=== PATIENT | female | born 1935 | race Caucasian/White ===

== ENCOUNTER → 2017-01-02 | Outpatient (CLI) | payer BC ==
[~2017-01-02] MED LIST: ALBU18002 INH; ASPI81TA28 PO; BIOT1TAB2 PO; CETI10TA84 PO; CHOL1000 PO; DTRSR4 PO; ESTR0.3T PO; MONT1TAB3 PO; SIMV20TA2 PO; SULF800T23 PO; SYMIN160 INH
--- NOTE | 2017-01-02 11:00 | DIAGNOSTIC IMAGING REPORT ---
CHEST 2 VIEWS ROUTINE CLINICAL HISTORY: ASTHMA WITH ACUTE EXACERBATION dyspnea COMPARISON STUDY: 11/30/2015 FINDINGS: No acute process. Stable calcified granuloma peripheral aspect left midlung. Stable pleural thickening pulmonary apices. Stable pleural plaque left as well as right upper lung region. IMPRESSION: No acute process. Electronically signed by: Flako Mcelroy M.D. 01/02/2017 10:59 AM Dictated Date/Time: 01/02/2017 10:58 AM
== END | disposition home or self-care (01) ==
LOC: C.RADBC 10:36
PROVIDERS: ATTEND Nurse Practitioner Adult Health
DX: J45.901 Unspecified asthma with (acute) exacerbation (principal)

== ENCOUNTER 2017-01-18 10:58 | Emergency (ER) | payer BC ==
[~2017-01-18] VITALS: Ht 162.6 cm; Wt 76.8 kg
[2017-01-18 11:06] VITALS: Ht 162.6 cm; Wt 76.8 kg
[2017-01-18] MEDS ORDERED: ESTR0.3T PO (12:48)
[2017-01-18] MEDS ORDERED: SIMV20TA2 PO (12:48)
[2017-01-18 12:51] VITALS: O2SAT 95
[2017-01-18] MEDS ORDERED: ASPI81TA28 PO (12:54)
[2017-01-18] MEDS ORDERED: SYMIN160 INH (12:54)
[2017-01-18] MEDS ORDERED: MONT1TAB3 PO (12:54)
[2017-01-18] MEDS ORDERED: BIOT1TAB2 PO (12:54)
[2017-01-18] MEDS ORDERED: ALBU18002 INH (12:54)
[2017-01-18] MEDS ORDERED: CETI10TA84 PO (12:54)
[2017-01-18] MEDS ORDERED: DTRSR4 PO (12:54)
[2017-01-18] MEDS ORDERED: CHOL1000 PO (12:54)
[2017-01-18 13:00] VITALS: TEMP 36.9
[2017-01-18 13:03] LABS: BASO % 0.2 %; BASO ABS # 0.02 K/uL (0-0.2); COMPLETE YES; EOS % 1.7 %; HEMATOCRIT 42.2 % (37-47); IG% 0.2 %; LYMPH % 12.6 %; LYMPH ABS # 1.05 K/uL (1.2-3.4); MEAN CELL VOLUME 90.9 fL (80-100); MEAN CORPUSCULAR HEMOGLOBIN 30.2 pg (25-34); MEAN CORPUSCULAR HGB CONC 33.2 g/dl (32-36); MEAN PLATELET VOLUME 10.7 fL (7.4-10.4); NEUT % 70.3 %; PLATELET COUNT 171 K/uL (130-400); RED BLOOD COUNT 4.64 M/uL (4.2-5.4); WHITE BLOOD COUNT 8.32 K/uL (4.8-10.8)
--- NOTE | 2017-01-18 13:03 | EMERGENCY ROOM VISIT NOTE ---
History Report prepared by Gavi: Celestina Bose Under the Supervision of: Dr. Geraldo Schaffer M.D. First contact with patient: 11:33 Chief Complaint: ILLNESS Stated Complaint: WEAK, SOB, TIRED History of Present Illness The patient is a 81 year old female who presents to the Emergency Room with complaints of a worsening weakness that began 2 days ago. She started getting short of breath, weak, and diaphoretic with exertion 2 days ago. Her symptoms improve with rest. Earlier today while she was sitting at her computer, she developed chest/epigastric pain that lasted for about 10 minutes and then resolved. She thought that it was heartburn. The patient denies any personal cardiac history. She has had a negative stress test in the past, but cannot remember when it was. She denies abdominal pain. Source of History: patient Onset: 2 days ago Position: other (global) Quality: other (weakness) Timing: worsening Modifying Factors (Worsening): exertion Modifying Factors (Relieving): rest Associated Symptoms: + diaphoresis, + chest pain, + SOB, No abdominal pain Review of Systems See HPI for pertinent positives & negatives. A total of 10 systems reviewed and were otherwise negative. Past Medical & Surgical Medical Problems: (1) Asthma (2) Osteoporosis Family History Heart disease Social History Smoking Status: Former Smoker Smokeless Tobacco Use: No Alcohol Use: occasionally Occupation Status: retired Current/Historical Medications Scheduled Aspirin (Aspirin Ec), 81 MG PO DAILY Biotin (Biotin), Unknown Dose PO DAILY Budesonide/Formoterol Fumarate (Symbicort 160/4.5 Inhaler ), Unknown Dose INH BID Cetirizine (Zyrtec), 10 MG PO DAILY Cholecalciferol (Vitamin D3), Unknown Dose PO DAILY Estrogens, Conjugated (Premarin), 0.3 MG PO DAILY Montelukast Sodium (Singulair), 10 MG PO DAILY Simvastatin (Zocor), Unknown Dose PO DAILY Sulfa/Trimethoprim (Bactrim Ds 800MG/160MG), 1 TAB PO BID Tolterodine Tartrate (Detrol LA), Unknown Dose PO DAILY Scheduled PRN Albuterol Sulfate (Proair Respiclick), 2 PUFFS INH DAILY PRN for SOB/Wheezing Allergies Coded Allergies: No Known Allergies (Unverified , 01/18/17) Physical Exam Vital Signs Date Time Temp Pulse Resp B/P (MAP) Pulse Ox O2 Delivery O2 Flow Rate FiO2 01/18/17 14:46 74 18 165/95 96 01/18/17 14:04 73 18 165/95 100 Room Air 01/18/17 13:00 36.9 01/18/17 12:55 75 01/18/17 12:54 75 18 174/64 94 Room Air 01/18/17 12:51 95 Room Air 01/18/17 11:06 93 20 126/65 93 Room Air Physical Exam GENERAL: Patient is a healthy-appearing well-nourished 81 year old female. HEAD: Normocephalic atraumatic EYES: Ocular movements intact pupils equal and react to light OROPHARYNX mucous membranes are moist no exudates present no erythema or edema present NECK: Supple no nuchal rigidity CHEST: Good equal expansion LUNGS: Clear and equal to auscultation CARDIAC: Normal S1 and S2 ABDOMEN: Soft nontender no guarding BACK: No CVA tenderness EXTREMITIES: No pain upon palpation normal muscle strength in all groups no clubbing cyanosis or edema NEURO: Patient is following commands is answering questions appropriately. Alert and oriented x3 Cranial Nerves 2-12 grossly intact Medical Decision & Procedures ER Provider Diagnostic Interpretation: Radiology results as stated below per my review and radiologist interpretation: CHEST ONE VIEW PORTABLE CLINICAL HISTORY: Shortness of breath. Weakness. COMPARISON STUDY: Chest radiograph January 02, 2017. FINDINGS: Lung lungs are normal. There is no pneumothorax or pleural effusion. Cardiomediastinal silhouette is stable. There is no evidence of pulmonary edema. Multiple calcified bilateral pulmonary nodules are again noted. Several pleural nodules are noted. These are unchanged since CT of December 18, 2010 and are therefore benign. There is no consolidation to suggest pneumonia. IMPRESSION: No acute cardiopulmonary findings. No change in appearance the chest. Electronically signed by: George Quintanilla M.D. 01/18/2017 1:34 PM Dictated Date/Time: 01/18/2017 1:33 PM Laboratory Results 01/18/17 12:50 Red Blood Count 4.64, Mean Corpuscular Volume 90.9, Mean Corpuscular Hemoglobin 30.2, Mean Corpuscular Hemoglobin Concent 33.2, Mean Platelet Volume 10.7, Neutrophils (%) (Auto) 70.3, Lymphocytes (%) (Auto) 12.6, Monocytes (%) (Auto) 15.0, Eosinophils (%) (Auto) 1.7, Basophils (%) (Auto) 0.2, Neutrophils # (Auto ) 5.84, Lymphocytes # (Auto) 1.05, Monocytes # (Auto) 1.25, Eosinophils # (Auto ) 0.14, Basophils # (Auto) 0.02 01/18/17 12:50 Test 01/18/17 12:30 01/18/17 12:50 Urine Color DK YELLOW Urine Appearance CLOUDY (CLEAR) Urine pH 5.5 (4.5-7.5) Urine Specific Stow 1.019 (1.000-1.030) Urine Protein TRACE (NEG) Urine Glucose (UA) NEG (NEG) Urine Ketones NEG (NEG) Urine Occult Blood TRACE (NEG) Urine Nitrite POS (NEG) Urine Bilirubin NEG (NEG) Urine Urobilinogen NEG (NEG) Urine Leukocyte Esterase MODERATE (NEG) Urine WBC (Auto) >30 /hpf (0-5) Urine RBC (Auto) 0-4 /hpf (0-4) Urine Hyaline Casts (Auto) 10-30 /lpf (0-5) Urine Epithelial Cells (Auto) >30 /lpf (0-5) Urine Bacteria (Auto) 4+ (NEG) White Blood Count 8.32 K/uL (4.8-10.8) Red Blood Count 4.64 M/uL (4.2-5.4) Hemoglobin 14.0 g/dL (12.0-16.0) Hematocrit 42.2 % (37-47) Mean Corpuscular Volume 90.9 fL (80-100) Mean Corpuscular Hemoglobin 30.2 pg (25-34) Mean Corpuscular Hemoglobin Concent 33.2 g/dl (32-36) Platelet Count 171 K/uL (130-400) Mean Platelet Volume 10.7 fL (7.4-10.4) Neutrophils (%) (Auto) 70.3 % Lymphocytes (%) (Auto) 12.6 % Monocytes (%) (Auto) 15.0 % Eosinophils (%) (Auto) 1.7 % Basophils (%) (Auto) 0.2 % Neutrophils # (Auto) 5.84 K/uL (1.4-6.5) Lymphocytes # (Auto) 1.05 K/uL (1.2-3.4) Monocytes # (Auto) 1.25 K/uL (0.11-0.59) Eosinophils # (Auto) 0.14 K/uL (0-0.5) Basophils # (Auto) 0.02 K/uL (0-0.2) RDW Standard Deviation 41.8 fL (36.4-46.3) RDW Coefficient of Variation 12.6 % (11.5-14.5) Immature Granulocyte % (Auto) 0.2 % Immature Granulocyte # (Auto) 0.02 K/uL (0.00-0.02) Anion Gap 7.0 mmol/L (3-11) Est Creatinine Clear Calc Drug Dose 42.8 ml/min Estimated GFR () 60.3 Estimated GFR (Non- 52.1 BUN/Creatinine Ratio 20.4 (10-20) Calcium Level 9.2 mg/dl (8.5-10.1) Total Bilirubin 0.3 mg/dl (0.2-1) Aspartate Amino Transf (AST/SGOT) 26 U/L (15-37) Alanine Aminotransferase (ALT/SGPT) 36 U/L (12-78) Alkaline Phosphatase 58 U/L (45-117) Total Creatine Kinase 47 U/L (26-192) Creatine Kinase MB 1.0 ng/ml (0.5-3.6) Creatine Kinase MB Ratio 2.1 (0-3.0) Troponin I < 0.015 ng/ml (0-0.045) Pro-B-Type Natriuretic Peptide 176 pg/ml (0-1800) Total Protein 7.6 gm/dl (6.4-8.2) Albumin 3.3 gm/dl (3.4-5.0) Globulin 4.3 gm/dl (2.5-4.0) Albumin/Globulin Ratio 0.8 (0.9-2) Labs reviewed by ED physician. Medications Administered Medications (Trade) Dose Ordered Sig/Shauna Route Start Time Stop Time Status Last Admin Dose Admin Ceftriaxone Sodium (Rocephin Inj) 1 gm NOW STAT IV 01/18/17 13:42 01/18/17 13:43 DC 01/18/17 14:02 1 GM ECG Indication: chest pain Rate (beats per minute): 80 Rhythm: normal sinus Findings: T-wave inversion (Anterolateral), no ectopy Comparison ECG Date: 05/26/2005 Change: T-wave inversions are new. ED Course 1221: Past medical records reviewed. The patient was evaluated in room C1B. A complete history and physical examination was performed. 1342: Rocephin 1 gm IV 1344: I reassessed the patient at this time. She is feeling better and resting comfortably. I discussed the results and treatment plan with the patient. I answered all pertaining questions that she had. She expressed understanding and verbalized agreement. The patient will be discharged home. 1407: I spoke with the patient again at this time. I addressed her complaints and she is in agreement with the treatment plan. She will be discharged. Medical Decision Etiologies such as metabolic, infection, hypo/hyperglycemia, electrolyte abnormalities, cardiac sources, intracerebral event, toxicologic, neurologic, as well as others were entertained. Medication Reconciliation: I attest that I have personally reviewed the patient' s current medication list. Blood Pressure Screening: Patient was found to have an elevated blood pressure and was referred to their primary care doctor for recheck and further treatment. This is an 81-year-old female who presents emergency Department with a number of complaints including headache, chest pain, generalized weakness. She does have a normal CBC normal renal profile normal liver profile normal EKG normal CK -MB troponin. She does however have large amount of white blood cells in her urine and I do believe she has a urinary tract infection. Based on this finding the patient was given Rocephin. I believe she can be sent home with Bactrim to follow-up with her primary care physician pending urine culture results. Patient was in agreement with the treatment plan. Impression Primary Impression: UTI (urinary tract infection) Scribe Attestation The scribe's documentation has been prepared under my direction and personally reviewed by me in its entirety. I confirm that the note above accurately reflects all work, treatment, procedures, and medical decision making performed by me. Departure Information Dispostion Home / Self-Care Prescriptions Sulfa/Trimethoprim (Bactrim Ds 800MG/160MG) Tab 1 TAB PO BID for 10 Days, #20 TAB Prov: Geraldo Schaffer MD 01/18/17 Referrals Neo Cruz M.D. (PCP) Forms HOME CARE DOCUMENTATION FORM, IMPORTANT VISIT INFORMATION, WORK / SCHOOL INSTRUCTIONS Patient Instructions ED UTI Cystitis Female, [facility] Additional Instructions You were found to have an elevated blood pressure today (>120 sytolic or >90 diastolic). Per medicare guidelines, you need to follow up with this blood pressure screening with your Primary Care Physician (PCP). For a new PCP call [phone]. Culture results are usually available in approx 48 hours You have been examined and treated today on an emergency basis only. This is not a substitute for, or an effort to provide, complete comprehensive medical care. It is impossible to recognize and treat all injuries or illnesses in a single emergency department visit. It is therefore important that you follow up closely with Dr Cruz. Call as soon as possible for an appointment. Thank you for your time and consideration. I look forward to speaking with you again soon. Please don't hesitate to call us if you have any questions. Problem Qualifiers Primary Impression: UTI (urinary tract infection) Urinary tract infection type: acute cystitis Hematuria presence: with hematuria Qualified Codes: N30.01 - Acute cystitis with hematuria
[2017-01-18 13:21] LABS: ALT/SGPT 36 U/L (12-78); AST/SGOT 26 U/L (15-37); BLOOD UREA NITROGEN 20 mg/dl (7-18); BUN/CREATININE RATIO 20.4 (10-20); CALCIUM 9.2 mg/dl (8.5-10.1); CARBON DIOXIDE 29 mmol/L (21-32); CHLORIDE 101 mmol/L (98-107); GLUCOSE 98 mg/dl (70-99); POTASSIUM 4.3 mmol/L (3.5-5.1); SODIUM 137 mmol/L (136-145)
[2017-01-18 13:26] LABS: ALB/GLOB RATIO 0.8 (0.9-2); ALKALINE PHOSPHATASE 58 U/L (45-117); CKMB/CK RATIO 2.1 (0-3.0)
[2017-01-18 13:31] LABS: URINE APPEARANCE CLOUDY (CLEAR); URINE BILIRUBIN NEG (NEG); URINE COLOR DK YELLOW; URINE EPITHELIAL CELL AUTO >30 /lpf (0-5); URINE NITRITE POS (NEG); URINE PH 5.5 (4.5-7.5); URINE SPECIFIC GRAVITY 1.019 (1.000-1.030); UROBILINOGEN NEG (NEG)
[2017-01-18 13:32] LABS: MANUAL MICROSCOPIC REQUIRED? NO; REVIEW REQ? NO
--- NOTE | 2017-01-18 13:36 | DIAGNOSTIC IMAGING REPORT ---
CHEST ONE VIEW PORTABLE CLINICAL HISTORY: Shortness of breath. Weakness. COMPARISON STUDY: Chest radiograph January 02, 2017. FINDINGS: Lung lungs are normal. There is no pneumothorax or pleural effusion. Cardiomediastinal silhouette is stable. There is no evidence of pulmonary edema. Multiple calcified bilateral pulmonary nodules are again noted. Several pleural nodules are noted. These are unchanged since CT of December 18, 2010 and are therefore benign. There is no consolidation to suggest pneumonia. IMPRESSION: No acute cardiopulmonary findings. No change in appearance the chest. Electronically signed by: George Quintanilla M.D. 01/18/2017 1:34 PM Dictated Date/Time: 01/18/2017 1:33 PM
[2017-01-18] MEDS ORDERED: CEFTRIAXONE SOD INJ 1 GM ADDVIAL IV STA (13:42)
[2017-01-18] MEDS ORDERED: SULF800T23 PO (13:53)
[2017-01-18 14:46] VITALS: BP 165/95; PULSE 74; O2SAT 96
== END 2017-01-18 14:47 | disposition home or self-care (01) ==
LOC: C.EDB 11:00 → C.EDC 14:47
DX: N39.0 Urinary tract infection, site not specified (principal); R53.1 Weakness; R06.02 Shortness of breath; R61 Generalized hyperhidrosis; Z87.891 Personal history of nicotine dependence

== ENCOUNTER → 2017-03-11 | Outpatient (CLI) | payer BC ==
[~2017-03-11] MED LIST changes: -SULF800T23 PO
--- NOTE | 2017-03-11 13:24 | MAMMOGRAPHY REPORT ---
BILATERAL DIGITAL SCREENING MAMMOGRAM WITH CAD: 03/11/2017 CLINICAL HISTORY: Routine screening. Patient has no complaints. TECHNIQUE: Bilateral CC and MLO views were obtained. Current study was also evaluated with a Compute r Aided Detection (CAD) system. COMPARISON: Comparison is made to exams dated: 03/09/2016 mammogram, 03/05/2015 mammogram, 03/02/2014 m ammogram, 03/02/2014 ultrasound, 02/26/2014 mammogram, and 02/28/2013 mammogram - [facility]. BREAST COMPOSITION: There are scattered areas of fibroglandular density in both breasts. FINDINGS: There are stable benign coarse and rodlike calcifications in both breasts. No suspicious mass, architectural distortion or cluster of suspicious microcalcifications is seen. IMPRESSION: ACR BI-RADS CATEGORY 2: BENIGN There is no mammographic evidence of malignancy. A 1 year screening mammogram is recommended. The pa tient will receive written notification of the results. Approximately 10% of breast cancers are not detected with mammography. A negative mammographic report should not delay biopsy if a clinically suggestive mass is present. Nissa Ryan M.D. ay/:03/11/2017 10:15:55 Air Purifier Servicer: Jaylyn Guzman, [facility] letter sent: Normal 1/2 BI-RADS Code: ACR BI-RADS Category 2: Benign
== END | disposition home or self-care (01) ==
LOC: C.MAMM 09:42
PROVIDERS: ATTEND Obstetrics & Gynecology
DX: Z12.31 Encounter for screening mammogram for malignant neoplasm of breast (principal)

== ENCOUNTER → 2017-12-08 | Outpatient (CLI) | payer BC ==
--- NOTE | 2017-12-08 14:16 | DIAGNOSTIC IMAGING REPORT ---
Brain MRI WITHOUT CONTRAST HISTORY: Left-sided headache. TECHNIQUE: Multiplanar multisequence MRI of the brain was performed without the use of contrast. COMPARISON STUDY: None. FINDINGS: There is no mass, hematoma, midline shift, or acute infarct. Moderate mucosal thickening within the left sphenoid sinus. Mild mucosal thickening within the ethmoid air cells. The mastoid air cells are clear. The ventricles and sulci demonstrate mild age-related involutional changes. Scattered foci of T2 hyperintensity seen within the periventricular and subcortical white matter are nonspecific but suggestive of mild microvascular ischemic changes. The major vascular flow voids at the skull base are well-maintained. IMPRESSION: 1. No acute intracranial abnormality. Scattered foci of T2 hyperintensity seen within the periventricular and subcortical white matter are nonspecific but favor microvascular ischemic change. 2. Mild to moderate mucosal thickening within the paranasal sinuses. Electronically signed by: Eligio Kelley M.D. 12/08/2017 2:15 PM Dictated Date/Time: 12/08/2017 2:05 PM
== END | disposition home or self-care (01) ==
LOC: C.MRIBC 13:00
PROVIDERS: ATTEND Internal Medicine
DX: G31.84 Mild cognitive impairment of uncertain or unknown etiology (principal); R51 Headache

== ENCOUNTER → 2018-03-14 | Outpatient (CLI) | payer BC ==
--- NOTE | 2018-03-14 15:42 | MAMMOGRAPHY REPORT ---
BILATERAL DIGITAL SCREENING MAMMOGRAM TOMOSYNTHESIS WITH CAD: 03/14/2018 CLINICAL HISTORY: Routine screening. Patient has no complaints. TECHNIQUE: The study was acquired using full field digital technology and interpreted from soft copy. Breast tomosynthesis in addition to standard 2D mammography was performed. Current study was also ev aluated with a Computer Aided Detection (CAD) system. COMPARISON: Comparison is made to exams dated: 03/11/2017 mammogram, 03/09/2016 mammogram, 03/05/2015 m ammogram, 03/02/2014 ultrasound, 02/28/2013 mammogram, and 02/21/2013 mammogram - [facility] enter. BREAST COMPOSITION: There are scattered areas of fibroglandular density in both breasts. FINDINGS: There is a 5 mm focal asymmetry in the 12:00 versus retroareolar middle to posterior left b reast, for which additional spot compression tomosynthesis views and possible ultrasound are recommen ded. There are scattered rodlike and benign rim calcifications in both breasts. No other suspicious mass, architectural distortion or cluster of microcalcifications is seen. IMPRESSION: ACR BI-RADS CATEGORY 0: INCOMPLETE EVALUATION: NEED ADDITIONAL IMAGING EVALUATION The 5 mm focal asymmetry in the 12:00 versus retroareolar middle to posterior left breast needs addit ional evaluation. The patient will be called to schedule an appointment. Some breast cancers are not detected with mammography. A negative mammographic report should not dick y biopsy if a clinically suggestive mass is present. Nissa Ryan M.D. ay/:03/14/2018 14:52:59 Silk Screen Repairer: Jaylyn Guzman, [facility] letter sent: Addl Imaging 0 BI-RADS Code: ACR BI-RADS Category 0: Incomplete Evaluation: Need Additional Imaging Evaluation
== END | disposition home or self-care (01) ==
LOC: C.MAMM 09:57
PROVIDERS: ATTEND Internal Medicine
DX: Z12.31 Encounter for screening mammogram for malignant neoplasm of breast (principal); N64.89 Other specified disorders of breast

== ENCOUNTER → 2018-03-18 | Outpatient (CLI) | payer BC ==
--- NOTE | 2018-03-18 14:36 | MAMMOGRAPHY REPORT ---
UNILATERAL LEFT DIGITAL DIAGNOSTIC MAMMOGRAM TOMOSYNTHESIS AND TARGETED LEFT ULTRASOUND: 03/18/2018 CLINICAL HISTORY: Callback from screening mammogram for left breast asymmetry. TECHNIQUE: The study was acquired using full field digital technology and interpreted from soft copy. Breast tomosynthesis in addition to standard 2D mammography was performed. Spot compression left CC and MLO 2D and tomosynthesis images were obtained. COMPARISON: Comparison is made to exams dated: 03/14/2018 mammogram, 03/11/2017 mammogram, 03/09/2016 m ammogram, 03/05/2015 mammogram, 03/02/2014 mammogram, and 02/26/2014 mammogram - [facility] enter. BREAST COMPOSITION: There are scattered areas of fibroglandular density in left breast. FINDINGS: Spot compression views demonstrate a faint low-density oval circumscribed 6 mm mass within the left 1 2:00 breast, best seen on the tomosynthesis images. The finding appears stable on 2D views compared to prior exams including the cc views from the 2012 and 2010 exams. Targeted ultrasound was perform ed of the left 12:00 breast in the region of the mammographic mass. No suspicious mass or other susp icious sonographic abnormality is evident. No clear sonographic correlate for the mammographic mass is seen. IMPRESSION: ACR BI-RADS CATEGORY 2: BENIGN, ULTRASOUND ACR BI-RADS CATEGORY 2: BENIGN Circumscribed benign-appearing 6 mm mass within the left 12:00 breast appears stable mammographically dating back to at least the 2010 exam. No suspicious sonographic correlate is evident. Given the m orphology and long-term stability, the mass is considered benign. There is no mammographic or sonogr aphic evidence of malignancy. A 1 year screening mammogram is recommended.(03/19/2019) The patient h as been verbally notified of the results. Some breast cancers are not detected with mammography. A negative mammographic report should not dick y biopsy if a clinically suggestive mass is present. Cheyenne Rosales M.D. ah/:03/18/2018 09:06:42 Casting Operator: RT Lynn(R)(M), [facility]; Cheyenne Rosales MD, [facility] letter sent: Normal 1/2 OVERALL STUDY BIRADS: 2 Benign
== END | disposition home or self-care (01) ==
LOC: C.MAMM 08:40
PROVIDERS: ATTEND Internal Medicine
DX: N64.89 Other specified disorders of breast (principal)

== ENCOUNTER 2021-08-14 08:25 | Observation (INO) ==
--- NOTE | 2021-08-14 09:05 | Emergency Department Note ---
Impression & Plan Syncope, Nasal fracture, Aortic stenosis ED Provider Note CHIEF COMPLAINT: Fall, head injury, right hand pain HISTORY OF PRESENTING ILLNESS: This is an 86-year-old female who presents to the emergency department by private vehicle with her with complaint of fall and head injury and right hand injury that occurred last night. Patient states she does not remember how she fell and does note that there was some loss of consciousness. She states "when I came to, I asked my how did I get on the bathroom floor." Patient notes that she went to bed around 10 PM last night and she woke up on the bathroom floor around 1 AM. She assumes that she got up to use the bathroom but does not remember this. She notes that she hit the front of her forehead and face and has some bruising around her nose and eyes. She also notes bruising and swelling with some pain in the top of her right hand. She notes that she takes a baby aspirin, but denies taking any other blood thinners. She was previously on Plavix for some "mini strokes" but does not still take this. She complains of pain in the right hand that she rates 3/10. She also complains of a mild headache and mild neck pain. She denies any chest pain, chest tightness, shortness of breath, palpitations, or dizziness. She denies any numbness/tingling or weakness of her arms or legs, she denies vision changes or problems with her balance. She denies any history of heart rhythm problems and does not have a pacemaker or defibrillator. She does have a history of heart murmur. She denies any other injuries besides the face and right hand. She reports that her tetanus is up-to-date. REVIEW OF SYSTEMS: A complete 10 point review of systems was reviewed with the patient with pertinent positives and negatives as per history of present illness. All else were negative. PAST MEDICAL HISTORY: Hypertension, hyperlipidemia, CVA, asthma, aortic stenosis, osteoporosis, history of cataract surgery, hysterectomy, and sinus surgery SOCIAL HISTORY: Lives at home with her , she denies tobacco use ALLERGIES: Reviewed in chart with the patient PHYSICAL EXAM: CONSTITUTIONAL: Pleasant and cooperative. Nontoxic-appearing and in no acute distress. Well appearing and well nourished. HEENT: Normocephalic. There is a small hematoma to the left forehead and a small amount of ecchymosis noted along the inner corners of both eyes. Bruising and abrasion over the bridge of the nose, which is tender to palpation. Dried blood and blood clots noted in both nares, no septal hematoma or significant septal deviation. PERRLA, EOMI with no nystagmus. TMs normal, no hemotympanum bilaterally. Pharynx normal. NECK: Mild discomfort with moving the neck. Tenderness to palpation along the bilateral musculature of the neck. No midline tenderness of the cervical spine with palpation. RESPIRATORY: Clear to auscultation bilaterally with no wheezing, crackles, rhonchi or stridor. Equal expansion bilaterally. CARDIOVASCULAR: Regular rate and rhythm, 3/6 systolic murmur, no rubs or gallops. Normal peripheral perfusion. No edema. GASTROINTESTINAL: Soft, nontender, nondistended. No palpable masses or HSM. Bowel sounds present in all quadrants. MUSCULOSKELETAL: Moderate swelling and ecchymosis noted to the dorsal aspect of the right hand at the base of the second and third fingers overlying MCP joints. Full range of motion of all fingers and wrist without pain. Brisk capillary refill, 2+ radial pulse. Full range of motion of all other joints without discomfort. INTEGUMENTARY: No rash or other significant dermatologic conditions noted. NEUROLOGIC: Alert and oriented X 4 with normal affect. Cranial nerves II-XII grossly intact, no facial droop. No pronator drift. No focal neurologic deficits noted. Normal strength and sensation in all 4 extremities. Normal speech. Normal gait observed. ED COURSE AND MEDICAL DECISION MAKING: CC: Patient presenting with complaint of fall/syncope, head injury and right hand pain DIFFERENTIAL DIAGNOSIS: Includes, but not limited to mechanical fall, syncope, vasovagal episode, orthostatic hypotension, cardiac dysrhythmia, acute coronary syndrome, hand contusion, sprain/strain, fracture, intracranial hemorrhage, skull fracture, cervical spine injury, concussion, facial bone fracture, nasal bone fracture, among others. INTERPRETATION OF LABS: No leukocytosis, no anemia, normal platelets, no significant electrolyte abnormalities, mildly elevated BUN with a normal creatinine, normal liver enzymes. TSH within normal limits. Troponin is mildly elevated. UA pending at the time of admission. EKG: Shows normal sinus rhythm with a rate of 81 bpm, mild T wave inversions in the lateral leads, no ST elevation or depression, no ectopy, no significant change when compared to previous EKG from 01/18/2017 my interpretation. MEDICATION RECONCILIATION: I attest that I have personally reviewed the patient's current medication list. INITIAL VITAL SIGNS REVIEW: I reviewed the patient's initial vital signs and interpret them as follows: T: Afebrile; BP: Hypertensive; HR: Within normal limits; RR: Within normal limits; Pulse Ox: Within normal limits on room air. MDM SUMMARY: Patient was evaluated at bedside, history and physical exam performed. Patient is alert and oriented, in no acute distress, resting calmly in the stretcher. She is neurologically intact with no focal deficits. No midline tenderness of the cervical spine. She is noted to have forehead hematoma and some facial trauma with dried blood and blood clots in the bilateral nares and some bruising over the nasal bridge. There is bruising and swelling of the right hand. No other injuries noted on exam. Patient was offered something for pain, she declines. She was provided with an ice pack for her hand. Patient history is concerning for a syncopal episode. She does have a history of aortic stenosis and is noted to have a systolic murmur on exam. Cardiac monitoring: An order was placed for continuous cardiac monitoring. The monitor shows a rate of 84 bpm with normal sinus rhythm. EKG was reviewed and did not note any acute ischemic changes Orders were placed for labs including troponin and TSH, UA, x-ray of the right hand, CT imaging of the head, cervical spine, and facial bones to evaluate for trauma. Patient discussed with Dr. Rashid, who also evaluated the patient and agrees with my assessment, plan, and disposition. Labs and imaging reviewed, labs were notable for a mildly elevated troponin. X-ray of the hand was negative for any acute fracture. CT imaging of the head and cervical spine were negative for any acute findings, but there was note of a mildly displaced nasal bone fracture on facial CT. She does not have active epistaxis from the nose and bleeding is controlled. Spoke on the phone with Dr. Hebert, [facility] Hospitalist, who agrees to evaluate the patient for admission. Patient reassessed multiple times throughout ED stay, she has remained neurologically intact, hemodynamically stable and chest pain-free, and her pain remains well controlled. Patient was updated on all results and plan for admission, all questions were answered to the best my ability and the patient was agreeable to this plan. The patient was stable at time of admission. The chart was completed utilizing [employer] Speech voice recognition software. Grammatical errors, random word insertions, pronoun errors, and incomplete sentences are an occasional consequence of this system due to software limitations, ambient noise, and hardware issues. Any formal questions or concerns about the content, text, or information contained within the body of this dictation should be directly addressed to the nurse practitioner for clarification. Attending Attestation: Rebekah Rashid MD independently saw and evaluated this patient and agree with history and physical is otherwise documented by the physician life enrichment assistant. S ee their note for full details. Patient with contusion to right hand but no frx on xray. CT imaging with nasal fracture. Patient with contusion and tenderness on nasal bridge and dried blood in nares. Blood work given concern for syncope with + troponin. ?arrhythmia vs exacerbation of underlaying aortic stenosis. Discussed with patient and further monitoring and care here at the hospital. Past Med/Surg History Medical History (Updated 08/14/21 @ 17:28 by Dae Tafoya MD) Asthma with acute exacerbation Multiple pulmonary nodules Osteoporosis Sensorineural hearing loss Surgical History H/O Mohs micrographic surgery for skin cancer Hx of cataract surgery Hx of colonoscopy Hx of hysterectomy Hx of sinus surgery Family History Father Coronary heart disease Myocardial infarction Mother Diabetes Cardiac disorder Myocardial infarction Daughter Breast cancer Family/Other Hyperlipidemia Hypertension Denies family history of Ovarian cancer Prostate cancer Colorectal cancer Social History Smoking Status: Never smoker Age Started Using Tobacco: 14; Age Quit Using Tobacco: 43; packs per day: 0.5; Years Smoked: 29; Cigarettes Per Day: 10; Second Hand Exposure: No; Hx Alcohol Use: Yes (2 glasss of wine a day) Alcohol type: wine Alcohol Intake Frequency: 4 or More x per/Week Hx Substance Use: No Preferred Language: Kazakh Communication Ability: Effective Visual Impairment: Limited Hearing Ability: Normal Content Designer Required: No marital status: Current Living Situation: Spouse current occupational status: retired How many Children do You have: 2 Feels Safe at Home: Yes Childhood Exposure to Second-Hand Smoke: No caffeine: Yes Dental Care, Regularly: Yes Physical Activity Frequency: 3-4 Times per Week Seatbelt Use: always Sunscreen Use: Yes Allergies Allergies Allergy/AdvReac Type Severity Reaction Status Date / Time codeine Allergy Hives Verified 08/14/21 10:36 Dextromethorphan-guaiFENesin Allergy Mild Hives Uncoded 08/14/21 10:36 S Home Meds Home Medications Medication Instructions Recorded Confirmed cholecalciferol (vitamin D3) 50 5,000 unit PO DAILY cap 12/24/20 08/14/21 mcg (2,000 unit) capsule cetirizine 10 mg tablet (Zyrtec) 10 mg PO HS tab 03/24/21 08/14/21 mirabegron 25 mg tablet,extended 25 mg PO PM 08/14/21 08/14/21 release 24 hr (Myrbetriq) Previous Rx's Medication Instructions Recorded telmisartan 20 mg tablet 20 mg PO DAILY #90 tab 09/13/20 montelukast 10 mg tablet 10 mg PO QPM #90 tab 12/24/20 fenofibrate nanocrystallized 145 145 mg PO DAILY #90 tab 02/10/21 mg tablet simvastatin 40 mg tablet 40 mg PO HS #90 tab 02/10/21 clopidogrel 75 mg tablet (Plavix) 75 mg PO DAILY #30 tab 03/27/21 Results & Data (ED) Vital Signs Vital Signs - 24 hr 08/14/21 08:29 08/14/21 09:50 08/14/21 11:01 Temperature 36.4 C L Temperature Source Temporal Artery Scan Pulse Rate 92 H Pulse Rate [Apical] 68 77 Respiratory Rate 20 17 17 Respiratory Effort / Characteristics Non-Labored Spontaneous Respiratory Depth Normal Respiratory Pattern Regular Blood Pressure 158/80 H Blood Pressure [Left Arm] 159/62 H 206/86 H Blood Pressure Mean 106 Blood Pressure Mean [Left Arm] 94 126 Pulse Oximetry 97 97 96 Oxygen Delivery Method Room Air Room Air Room Air Sepsis Recent Fever Within 48 Hours No Sepsis New/Unexplained Change in Mental Status No Sepsis Action Taken by Nursing No Action Required Laboratory Data Result diagrams: 08/14/21 09:05 08/14/21 09:05 Lab Results 08/14/21 08/14/21 08/14/21 Range/Units 09:05 09:05 10:25 WBC 6.43 (4.8-10.8) K/uL RBC 4.39 (4.2-5.4) M/uL Hgb 13.1 (12.0-16.0) g/dL Hct 39.4 (37-47) % MCV 89.7 (80-100) fL MCH 29.8 (25-34) pg MCHC 33.2 (32-36) g/dL RDW Std Deviation 40.5 (36.4-46.3) fL RDW Coeff of Jai 12.5 (11.5-14.5) % Plt Count 209 (130-400) K/uL MPV 10.9 H (7.4-10.4) fL Immature Gran % (Auto) 0.3 % Neut % (Auto) 67.6 % Lymph % (Auto) 18.5 % [place] % (Auto) 8.6 % Eos % (Auto) 4.7 % Baso % (Auto) 0.3 % Neut # (Auto) 4.35 (1.4-6.5) K/uL Lymph # (Auto) 1.19 L (1.2-3.4) K/uL [place] # (Auto) 0.55 (0.11-0.59) K/uL Eos # (Auto) 0.30 (0-0.5) K/uL Baso # (Auto) 0.02 (0-0.2) K/uL Immature Gran # (Auto) 0.02 (0.00-0.02) K/uL Sodium 134 L (136-145) mmol/L Potassium 4.1 (3.5-5.1) mmol/L Chloride 103 (98-107) mmol/L Carbon Dioxide 28 (21-32) mmol/L Anion Gap 3.0 (3-11) BUN 22 H (7-18) mg/dl Creatinine 1.09 (0.6-1.2) mg/dl Est Cr Clr Drug Dosing 34.9 ml/min Est GFR ( Amer) 52.5 ml/min Est GFR (Non-Af Amer) 45.3 ml/min BUN/Creatinine Ratio 19.9 (10-20) Glucose 139 H (70-99) mg/dl Calcium 9.3 (8.5-10.1) mg/dl Total Bilirubin 0.4 (0.2-1) mg/dl AST 21 (15-37) U/L ALT 26 (12-78) Alkaline Phosphatase 48 (45-117) U/L Troponin I 0.051 H* (0-0.045) ng/ml Total Protein 7.7 (6.4-8.2) gm/dl Albumin 3.8 (3.4-5.0) gm/dl Globulin 3.9 (2.5-4.0) gm/dl Albumin/Globulin Ratio 1.0 (0.9-2) TSH 1.160 (0.300-4.500) uIu/ml Urine Color Urine Appearance (Clear) Urine pH (4.5-7.5) Ur Specific [place] (1.000-1.030) Urine Protein (Negative) Urine Glucose (UA) (Negative) Urine Ketones (Negative) Urine Blood (Negative) Urine Nitrite (Negative) Urine Bilirubin (Negative) Urine Urobilinogen (Negative) Ur Leukocyte Esterase (Negative) Urine WBC (Auto) (0-5) /hpf Urine RBC (Auto) (0-4) /hpf U Hyaline Cast (Auto) (0-5) /lpf U Epithel Cells (Auto) (0-5) /lpf Urine Bacteria (Auto) (Negative) SARS-CoV-2, RNA, NAAT NEGATIVE (NEGATIVE) 08/14/21 Range/Units 11:10 WBC (4.8-10.8) K/uL RBC (4.2-5.4) M/uL Hgb (12.0-16.0) g/dL Hct (37-47) % MCV (80-100) fL MCH (25-34) pg MCHC (32-36) g/dL RDW Std Deviation (36.4-46.3) fL RDW Coeff of Jai (11.5-14.5) % Plt Count (130-400) K/uL MPV (7.4-10.4) fL Immature Gran % (Auto) % Neut % (Auto) % Lymph % (Auto) % [place] % (Auto) % Eos % (Auto) % Baso % (Auto) % Neut # (Auto) (1.4-6.5) K/uL Lymph # (Auto) (1.2-3.4) K/uL [place] # (Auto) (0.11-0.59) K/uL Eos # (Auto) (0-0.5) K/uL Baso # (Auto) (0-0.2) K/uL Immature Gran # (Auto) (0.00-0.02) K/uL Sodium (136-145) mmol/L Potassium (3.5-5.1) mmol/L Chloride (98-107) mmol/L Carbon Dioxide (21-32) mmol/L Anion Gap (3-11) BUN (7-18) mg/dl Creatinine (0.6-1.2) mg/dl Est Cr Clr Drug Dosing ml/min Est GFR ( Amer) ml/min Est GFR (Non-Af Amer) ml/min BUN/Creatinine Ratio (10-20) Glucose (70-99) mg/dl Calcium (8.5-10.1) mg/dl Total Bilirubin (0.2-1) mg/dl AST (15-37) U/L ALT (12-78) Alkaline Phosphatase (45-117) U/L Troponin I (0-0.045) ng/ml Total Protein (6.4-8.2) gm/dl Albumin (3.4-5.0) gm/dl Globulin (2.5-4.0) gm/dl Albumin/Globulin Ratio (0.9-2) TSH (0.300-4.500) uIu/ml Urine Color Yellow Urine Appearance Clear (Clear) Urine pH 7.5 (4.5-7.5) Ur Specific [place] 1.008 (1.000-1.030) Urine Protein Negative (Negative) Urine Glucose (UA) Negative (Negative) Urine Ketones Negative (Negative) Urine Blood Negative (Negative) Urine Nitrite Negative (Negative) Urine Bilirubin Negative (Negative) Urine Urobilinogen Negative (Negative) Ur Leukocyte Esterase Trace H (Negative) Urine WBC (Auto) 10-30 H (0-5) /hpf Urine RBC (Auto) 0-4 (0-4) /hpf U Hyaline Cast (Auto) 0 (0-5) /lpf U Epithel Cells (Auto) 0-5 (0-5) /lpf Urine Bacteria (Auto) 1+ H (Negative) SARS-CoV-2, RNA, NAAT (NEGATIVE) Imaging Data Radiologist's Impression: Cervical Spine CT 08/14/21 08:51 CT cervical spine wo con CLINICAL HISTORY: fall, hit head, neck pain COMPARISON STUDY: 04/07/2021 CT DOSE: TECHNIQUE: Standard CT of the Cervical Spine was performed without IV contrast. A dose lowering technique was utilized adhering to the principles of ALARA. FINDINGS: Bones: There is reversal of expected cervical lordosis related to degenerative changes present. There is no evidence for an acute fracture or malalignment. Bones are osteopenic. The heights of the vertebral bodies are maintained. The vertebral bodies are in anatomic alignment. Odontoid Disc spaces:There is moderate to marked disc space narrowing present from C3 through C7 with endplate sclerosis and osteophyte formation. Apophyseal joints:Degenerative apophyseal joint disease is also present, left greater than right. Soft tissues:The prevertebral soft tissues are within normal limits. IMPRESSION: Osteopenia with no acute abnormality. Degenerative disc and degenerative joint disease are again seen. ACT 112: Negative or not required by law. Electronically signed by: Noel Duncan M.D. 08/14/2021 9:[address] 08/14/21 08:51 CT facial bones wo con CLINICAL HISTORY: fall, hit head and face, bruising around eyes/nose COMPARISON STUDY: No previous studies for comparison. CT DOSE: TECHNIQUE: Standard CT of the Facial Bones and Orbits was performed without IV contrast. A dose lowering technique was utilized adhering to the principles of ALARA. FINDINGS: Bones: There is a mildly displaced fracture involving the lateral wall of the nasal bones on the left. The nasal bridge and spines are intact. The nasal septum is in the midline. The zygomatic arches are intact bilaterally. The orbital rims are intact bilaterally. The mandible and maxilla are intact. Paranasal sinuses:The patient is status post previous sinus surgery. There is mucosal thickening involving the ethmoid air cells bilaterally and the right sphenoid sinus. Soft tissues:There is mild soft tissue swelling present anteriorly. IMPRESSION: Minimally displaced fracture involving the lateral wall of the nasal bones on the left. Mild bilateral ethmoid and right sphenoid sinusitis. ACT 112: Negative or not required by law. Electronically signed by: Noel Duncan M.D. 08/14/2021 10:11 AM Hand X-Ray 08/14/21 08:51 XR hand RT min 3V routine CLINICAL HISTORY: Status post fall with right hand bruising and swelling. COMPARISON STUDY: No previous studies for comparison. TECHNIQUE: 3 right hand views FINDINGS: Bones: The bones are osteopenic. There is no evidence for an acute fracture or dislocation. There is no lytic or blastic lesion. Joints: There is moderate narrowing of the IP joints and mild narrowing of the MCP joints. The bones are in anatomic alignment. Soft tissues: There is moderate swelling along the dorsum of the hand. There is no radiopaque foreign body. IMPRESSION: No acute osseous pathology. Osteopenia and osteoarthritis along with dorsal soft tissue swelling. ACT 112: Negative or not required by law. Electronically signed by: Noel Duncan M.D. 08/14/2021 9:[address] 08/14/21 08:54 CT OF THE HEAD WITHOUT CONTRAST CLINICAL HISTORY: syncope, hit head COMPARISON STUDY: MRI of the brain March 27, 2021. CT of the head April 07, 2021. CT DOSE: 985.62 mGy.cm TECHNIQUE: Helical axial images of the head were obtained without IV contrast. Automated exposure control was utilized for the study. A dose lowering technique was utilized adhering to the principles of ALARA. FINDINGS: No acute intracranial hemorrhage, midline shift or mass effect is present. Mild white matter hypodensities favor small vessel disease. The ventricular system is unremarkable. The basal cisterns are patent. No extra- axial collections are present. There are no findings to suggest acute dural sinus thrombosis or acute territorial infarct. No significant calvarial abnormalities are present. Postoperative findings within the sinuses are noted. There is mild ethmoid sinus mucosal thickening. Small left forehead contusion is present. There is a possible acute nondisplaced left nasal bone fracture. IMPRESSION: 1. No acute intracranial findings. 2. Small left forehead contusion. No calvarial fracture. 3. Possible acute nondisplaced left nasal bone fracture. ACT 112: Negative or not required by law. Electronically signed by: George Quintanilla M.D. 08/14/2021 9:50 AM Discharge Plan Visit Data Chief Complaint: Fall Stated Complaint: FALL, HAND PAIN ED Provider: Jarrell Rashid ED Midlevel Provider: Raysa Godwin Discharge Problem: Syncope, Nasal fracture, Aortic stenosis Patient Disposition: Admitted As Inpatient Condition: Good Discharge Instructions Interventions: ED Discharge Assessment Last Done: 08/14/21 14:00 Discharge Problem: Syncope Qualifiers: Syncope type: unspecified Qualified Code(s): R55 - Syncope and collapse Nasal fracture Qualifiers: Encounter type: initial encounter Fracture type: closed Qualified Code(s): S02.2XXA - Fracture of nasal bones, initial encounter for closed fracture Aortic stenosis Qualifiers: Cardiac valve disease etiology: etiology unspecified Qualified Code(s): I35.0 - Nonrheumatic aortic (valve) stenosis
--- NOTE | 2021-08-14 09:13 | XRay Report ---
XR hand RT min 3V routine CLINICAL HISTORY: Status post fall with right hand bruising and swelling. COMPARISON STUDY: No previous studies for comparison. TECHNIQUE: 3 right hand views FINDINGS: Bones: The bones are osteopenic. There is no evidence for an acute fracture or dislocation. There is no lytic or blastic lesion. Joints: There is moderate narrowing of the IP joints and mild narrowing of the MCP joints. The bones are in anatomic alignment. Soft tissues: There is moderate swelling along the dorsum of the hand. There is no radiopaque foreign body. IMPRESSION: No acute osseous pathology. Osteopenia and osteoarthritis along with dorsal soft tissue s welling. ACT 112: Negative or not required by law. Electronically signed by: Noel Duncan M.D. 08/14/2021 9:12 AM
[2021-08-14 09:19] LABS: Basophils # (auto) 0.02 K/uL (0-0.2); Basophils % (auto) 0.3 %; Eosinophils % (auto) 4.7 %; Hematocrit (blood only) 39.4 % (37-47); Hemoglobin 13.1 g/dL (12.0-16.0); Immature Granulocytes # (auto) 0.02 K/uL (0.00-0.02); Immature Granulocytes % (auto) 0.3 %; Lymphocytes # (auto) 1.19 K/uL (1.2-3.4); Lymphocytes % (auto) 18.5 %; Mean Corpuscular Hemoglobin 29.8 pg (25-34); Mean Corpuscular Hgb Conc 33.2 g/dL (32-36); Mean Corpuscular Volume 89.7 fL (80-100); Mean Platelet Volume 10.9 fL (7.4-10.4); Monocytes # (auto) 0.55 K/uL (0.11-0.59); Monocytes % (auto) 8.6 %; Neutrophils # (auto) 4.35 K/uL (1.4-6.5); Neutrophils % (auto) 67.6 %; Platelet Count 209 K/uL (130-400); RDW Coefficient of Variation 12.5 % (11.5-14.5); RDW Standard Deviation 40.5 fL (36.4-46.3); Red Blood Count 4.39 M/uL (4.2-5.4); White Blood Count 6.43 K/uL (4.8-10.8)
[2021-08-14 09:44] LABS: Albumin Level 3.8 gm/dl (3.4-5.0); BUN Creatinine Ratio 19.9 (10-20); Bilirubin,Total 0.4 mg/dl (0.2-1); Calcium 9.3 mg/dl (8.5-10.1); Creatinine Clr Calc Pharmacy 34.9 ml/min; Est GFR (African American) 52.5 ml/min; Est GFR (Non-African American) 45.3 ml/min; Globulin 3.9 gm/dl (2.5-4.0); Potassium 4.1 mmol/L (3.5-5.1); Total Protein 7.7 gm/dl (6.4-8.2)
--- NOTE | 2021-08-14 09:51 | CT Scan Report ---
CT cervical spine wo con CLINICAL HISTORY: fall, hit head, neck pain COMPARISON STUDY: 04/07/2021 CT DOSE: TECHNIQUE: Standard CT of the Cervical Spine was performed without IV contrast. A dose lowering te chnique was utilized adhering to the principles of ALARA. FINDINGS: Bones: There is reversal of expected cervical lordosis related to degenerative changes present. There is no evidence for an acute fracture or malalignment. Bones are osteopenic. The heights of the verte bral bodies are maintained. The vertebral bodies are in anatomic alignment. Odontoid Disc spaces:There is moderate to marked disc space narrowing present from C3 through C7 with endplate sclerosis and osteophyte formation. Apophyseal joints:Degenerative apophyseal joint disease is also present, left greater than right. Soft tissues:The prevertebral soft tissues are within normal limits. IMPRESSION: Osteopenia with no acute abnormality. Degenerative disc and degenerative joint disease ar e again seen. ACT 112: Negative or not required by law. Electronically signed by: Noel Duncan M.D. 08/14/2021 9:49 AM
--- NOTE | 2021-08-14 09:51 | CT Scan Report ---
CT OF THE HEAD WITHOUT CONTRAST CLINICAL HISTORY: syncope, hit head COMPARISON STUDY: MRI of the brain March 27, 2021. CT of the head April 07, 2021. CT DOSE: 985.62 mGy.cm TECHNIQUE: Helical axial images of the head were obtained without IV contrast. Automated exposure con trol was utilized for the study. A dose lowering technique was utilized adhering to the principles o f ALARA. FINDINGS: No acute intracranial hemorrhage, midline shift or mass effect is present. Mild white matte r hypodensities favor small vessel disease. The ventricular system is unremarkable. The basal cistern s are patent. No extra-axial collections are present. There are no findings to suggest acute dural si nus thrombosis or acute territorial infarct. No significant calvarial abnormalities are present. Post operative findings within the sinuses are noted. There is mild ethmoid sinus mucosal thickening. Smal l left forehead contusion is present. There is a possible acute nondisplaced left nasal bone fracture . IMPRESSION: 1. No acute intracranial findings. 2. Small left forehead contusion. No calvarial fracture. 3. Possible acute nondisplaced left nasal bone fracture. ACT 112: Negative or not required by law. Electronically signed by: George Quintanilla M.D. 08/14/2021 9:50 AM
[2021-08-14 09:59] LABS: Thyroid Stimulating Hormone 1.16 uIu/ml (0.300-4.500); Troponin I 0.051 ng/ml (0-0.045)
--- NOTE | 2021-08-14 10:13 | CT Scan Report ---
CT facial bones wo con CLINICAL HISTORY: fall, hit head and face, bruising around eyes/nose COMPARISON STUDY: No previous studies for comparison. CT DOSE: TECHNIQUE: Standard CT of the Facial Bones and Orbits was performed without IV contrast. A dose lowe ring technique was utilized adhering to the principles of ALARA. FINDINGS: Bones: There is a mildly displaced fracture involving the lateral wall of the nasal bones on the left . The nasal bridge and spines are intact. The nasal septum is in the midline. The zygomatic arches ar e intact bilaterally. The orbital rims are intact bilaterally. The mandible and maxilla are intact. Paranasal sinuses:The patient is status post previous sinus surgery. There is mucosal thickening invo lving the ethmoid air cells bilaterally and the right sphenoid sinus. Soft tissues:There is mild soft tissue swelling present anteriorly. IMPRESSION: Minimally displaced fracture involving the lateral wall of the nasal bones on the left. M ild bilateral ethmoid and right sphenoid sinusitis. ACT 112: Negative or not required by law. Electronically signed by: Noel Duncan M.D. 08/14/2021 10:11 AM
--- NOTE | 2021-08-14 10:28 | History & Physical Report ---
Date of Service August 14, 2021 Assessment & Plan (1) Syncope: Plan: Jacqueline is an 86-year-old female with a past medical history of hypertension, CVA, hyperlipidemia, asthma, history of orthostatic syncope with no episodes in many years, and aortic stenosis who presents following an episode of syncope. Syncope, suspected vasovagal DDx includes arrhythmogenic 1x syncope, occurred while in the bathroom at around 1 AM Patient has a past history in her 30s of orthostatic hypotension/syncope with no problems with lightheadedness/dizziness/syncope since that time. She has had palpitations in the previous months, had moved telemetry showed mostly normal sinus rhythm with one episode of bradycardia and one episode of transient Mobitz 1 type II heart block. History of moderate aortic stenosis, does not sound symptomatic at baseline and patient ambulates well at baseline. Repeat TTE pending. Patient denies chest pain, chest pressure. Denies cardiac history other than palpitations as noted - Hx TIAs with no residual deficits in the past year and was stopped taking Premarin due to this. EKG: Normal sinus rhythm without ST segment elevation/depression. ?T wave inversion in leads I, aVL. Troponin 0.051, trended Patient with some intermittently brief pain with urination but no urgency or burning. UA with UC pending TSH normal Potassium normal, creatinine normal, sodium 134 No leukocytosis Hemoglobin 13.1 Given trop leak, outpatient mobile telemetry for arrhythmia eval, and acute presentation will consult cardiology for additional recommendations (2) Nasal fracture: Plan: 2/2 syncope & fall CThead:1. No acute intracranial findings. Small left forehead contusion. No calvarial fracture. Possible acute nondisplaced left nasal bone fracture. - XR RIGHT HAND: No acute osseous pathology. Osteopenia and osteoarthritis along with dorsal soft tissue swelling. - CT-Face: Minimally displaced fracture involving the lateral wall of the nasal bones on the left. Mild bilateral ethmoid and right sphenoid sinusitis. - CT-CSpine: Osteopenia with no acute abnormality. Degenerative disc and degenerative joint disease are again seen. Non to minimally displaced nasal fracture without reduction indicated, patient able to breathe comfortably through both naris. Some dried blood in nares, no ongoing epistaxis. No septal hematoma or perforation appreciated. (3) Palpitations: Plan: See above (4) Impaired fasting glucose: Plan: BSG normal on admission Follow glucose daily, add SSI if consistently out of [id number] goal range (5) Hyperlipidemia: Plan: Statin (6) HTN (hypertension): Plan: Continue telmisartan 20 mg daily (7) CVA (cerebral vascular accident): Plan: Patient reports history of transient ischemic attacks in March Patient was started on statin and is on Plavix, had Premarin estrogen therapy stopped due to these Patient denies any residual neurologic deficits, denies deficits at time of bedside assessment (8) Asthma: Plan: Continue montelukast 10 mg p.o. every afternoon No wheezing on exam (9) Aortic stenosis: Plan: See above Plan: DVT prophylaxis: SCDs due to nasal trauma/epistaxis, may consider pharmacal prophylaxis if progressing well Disposition: Medical/surgical with telemetry CODE STATUS: DNR/DNI, discussed with patient and Diet: Heart healthy History of Present Illness Chief Complaint: Syncope Primary Care Provider: Neo Cruz MD Jacqueline is an 86-year-old female with a past medical history of hypertension, CVA, hyperlipidemia, asthma, history of orthostatic syncope with no episodes in many years, and aortic stenosis who presents following an episode of syncope. Jacqueline reports [facility] NExt thing she remembers her was standing over here and she was wondering why she was on the floor and noticed she was bleeding profusely from the nose. Doesn't remember going to the bathroom. Does not remember being lightheaded, dizzy, or falling. heard a crash and came in within a few seconds and thought Jacqueline was in he normal state of communication almost immediately. [place] weak after, murtaza tto stand up but was weak enouh to sit back down and took ~5 minutes to recover. Denies any recent history of syncope/lightheadedness. Endorses low blood pressure with standing and passing out in her 30s, but no issues since that time. Denies heart problems other than a murmur which has been present for ~1 year. No chest pain, no chest pressure, no shortness of breath. Has had intermittent palpitations followed by her PCP which last a few seconds at most ~1ce a day in the past, but has had no palpitations in the last year. Stopped premarin due to 3 ministrokes in Mar 2021 and has had some hot flashes since No lasting neuro deficites from the strokes Eating and drinkin gnormally. Denies nausea/vomiting/diarrhea/constipation Large bruise on the back of the R hand. Painful to her, but is able to flex and extend her fingers. History of OR in both her parents. Medical History: Reviewed Medications: Reviewed. Takes at night, last took last night. Surgical History: Reviewed. Allergies: Reviewed. Social History: No tobacco product use. Has 2 glasses of wine per night. No recreational drug use. Code Status: Surrogate decision maker would be daughter or . DNR/DNI. Allergies Allergy/AdvReac Type Severity Reaction Status Date / Time codeine Allergy Hives Verified 08/14/21 10:36 Dextromethorphan-guaiFENesin Allergy Mild Hives Uncoded 08/14/21 10:36 S Home Medications Medication Instructions Recorded Confirmed Type telmisartan 20 mg tablet 20 mg PO DAILY #90 tab 09/13/20 08/14/21 Rx cholecalciferol (vitamin D3) 50 5,000 unit PO DAILY cap 12/24/20 08/14/21 History mcg (2,000 unit) capsule montelukast 10 mg tablet 10 mg PO QPM #90 tab 12/24/20 08/14/21 Rx fenofibrate nanocrystallized 145 145 mg PO DAILY #90 tab 02/10/21 08/14/21 Rx mg tablet simvastatin 40 mg tablet 40 mg PO HS #90 tab 02/10/21 08/14/21 Rx cetirizine 10 mg tablet (Zyrtec) 10 mg PO HS tab 03/24/21 08/14/21 History clopidogrel 75 mg tablet (Plavix) 75 mg PO DAILY #30 tab 03/27/21 08/14/21 Rx mirabegron 25 mg tablet,extended 25 mg PO PM 08/14/21 08/14/21 History release 24 hr (Myrbetriq) Past Med/Surg History Medical History (Updated 08/14/21 @ 11:17 by Neo Hebert MD) Asthma with acute exacerbation Multiple pulmonary nodules Osteoporosis Sensorineural hearing loss Surgical History H/O Mohs micrographic surgery for skin cancer Hx of cataract surgery Hx of colonoscopy Hx of hysterectomy Hx of sinus surgery Family History Father Coronary heart disease Myocardial infarction Mother Diabetes Cardiac disorder Myocardial infarction Daughter Breast cancer Family/Other Hyperlipidemia Hypertension Denies family history of Ovarian cancer Prostate cancer Colorectal cancer Social History Smoking Status: Never smoker Age Started Using Tobacco: 14; Age Quit Using Tobacco: 43; packs per day: 0.5; Years Smoked: 29; Cigarettes Per Day: 10; Second Hand Exposure: No; Hx Alcohol Use: Yes (2 glasss of wine a day) Alcohol type: wine Alcohol Intake Frequency: 4 or More x per/Week Hx Substance Use: No Preferred Language: Lithuanian Communication Ability: Effective Visual Impairment: Limited Hearing Ability: Normal Director Of Capital Giving Required: No marital status: Current Living Situation: Spouse current occupational status: retired How many Children do You have: 2 Feels Safe at Home: Yes Childhood Exposure to Second-Hand Smoke: No caffeine: Yes Dental Care, Regularly: Yes Physical Activity Frequency: 3-4 Times per Week Seatbelt Use: always Sunscreen Use: Yes Review of Systems Review of Systems: All systems reviewed & are unremarkable except as noted in HPI & below Physical Exam Physical Exam: General: A&Ox3. NAD. Cooperative. HEENT: Dried blood in nares bilaterally, able to breathe comfortably through both nares.Left forehead and midline contusion, bruising overlying the nose. No septal deviation. No septal hematoma. No septal perforation. No mastoid tenderness. Pulm: CTAB A&P. -wheezes, -rales, -rhonchi. Symmetrical chest rise. No increase work of breathing. No respiratory distress. Cardiac: RRR, systolic murmur present. Radial pulses intact and symmetrical. Abdominal: Nontender, nondistended, soft. BS present. Extremities: Right hand with hematoma overlying the dorsal aspect. Cardiac/Vascular Sonographer strength intact bilaterally, wrist flexion/extension intact bilaterally, elbow flexion/extension intact bilaterally. Sensation is soft touch intact in all 5 fingertips, cap refill brisk, radial pulse intact and symmetrical. Ankle dorsiflexion/plantar flexion intact without asymmetry. Neuro: Pupils equal and reactive to light and accommodation. Visual acuity and hearing grossly intact. No facial asymmetry. Tongue protrudes midline. Speech normal. Lateral head turn intact, shoulder shrug intact. No focal deficits appreciated on exam. Results & Data Results & Data ([facility]) Vital Signs (Past 12 Hours) Vital Signs Temp Pulse Pulse Resp BP BP Pulse Ox 08/14/21 09:50 68 17 159/62 H 97 08/14/21 08:29 36.4 C L 92 H 20 158/80 H 97 PG Care Time/CCT Total # of Minutes Spent Total Time Spent with Patient: Total time spent is greater than 50% in coordination of care (as documented) at patient's floor/unit and/or counseling patient: Coding Level of Care Code INT OBSERVATION CARE 50M LVL 2 Diagnoses Syncope R55 Nasal fracture S02.2XXA Palpitations R00.2 Impaired fasting glucose R73.01 Hyperlipidemia E78.00; E78.0 Hyperlipidemia type: pure hypercholesterolemia HTN (hypertension) I10 Hypertension type: essential hypertension CVA (cerebral vascular accident) I63.9 Asthma J45.909 Aortic stenosis I35.0 (1) Hyperlipidemia Hyperlipidemia type: pure hypercholesterolemia Qualified Code(s): E78.00 - Pure hypercholesterolemia, unspecified; E78.0 - Pure hypercholesterolemia (2) HTN (hypertension) Hypertension type: essential hypertension Qualified Code(s): I10 - Essential (primary) hypertension
[2021-08-14 11:32] LABS: Appearance Urine Clear (Clear); Bacteria Urine Automated 1+ (Negative); Bilirubin Urine Negative (Negative); Blood Urine Negative (Negative); Cast Urine Automated 0 /lpf (0-5); Color Urine Yellow; Epithelial Cell Urine Auto 0-5 /lpf (0-5); Glucose Urine UA Negative (Negative); Ketones Urine Negative (Negative); Leukocyte Esterase Urine Trace (Negative); Nitrite Urine Negative (Negative); Protein Urine Negative (Negative); RBC Urine Automated 0-4 /hpf (0-4); Specific Gravity Urine 1.008 (1.000-1.030); Urobilinogen Urine Negative (Negative); pH Urine 7.5 (4.5-7.5)
[2021-08-14] MEDS ORDERED: ACETAMINOPHEN 325 MG TAB PO PRN (14:00)
--- NOTE | 2021-08-14 17:31 | Cardiology Consultation ---
Date of Consultation August 14, 2021 Assessment & Plan (1) Syncope: (2) Aortic stenosis: (3) Mobitz type 1 second degree AV block: 1. Syncope: The patient clearly lost consciousness. The etiology of her event is unclear but certainly concerning for arrhythmia. It is unclear if she was going to the bathroom or had finished using the toilet. She did report having a nightgown that was wet suggesting that she did not make it to the bathroom. In that setting, high vagal tone would be less likely and etiology for her syncope. I suppose it is possible that she tripped and had post concussive symptoms. It is possible that she had orthostatic symptoms as well. No specific rhythm abnormality has been identified during her telemetry monitoring in the hospital or on prior 30 day monitoring. However, an arrhythmic etiology seems highly likely. I suggested a more prolonged period of monitoring. Described the procedure for implanting a loop recorder and she seems agreeable. This would also facilitate longer monitoring for atrial fibrillation given her prior embolic stroke. 2. Aortic stenosis: Moderate. She was evaluated a few months ago. I do not believe this represents acute progression of her aortic stenosis. I do not believe she requires re-evaluation at this point. 3. Mobitz 1 conduction: This reported on prior outpatient monitoring. I suspect this occurred during traditional sleeping hours. In the absence of a correlation between symptoms and this conduction there is no indication for treatment. 4. Elevated troponin: She is very mildly elevated cardiac biomarkers. There is nothing in her history suggestive of an acute coronary syndrome. I do not be lieve this is resources representative of an acute coronary event. I do not believe any additional evaluation is required. History of Present Illness Reason for Consultation: Syncope Requesting Physician: Anup Attending Physician: Neo Hebert MD History of Present Illness The patient is an 78-year-old woman with a history of aortic stenosis who suffered a fall last evening. The patient recalls getting up to go to the bathroom and later was awoken by her . She was on the floor and she had blood on her nightgown. She suffered an injury to her face and hand. Her h usband attempted to get her up and back in bed but she felt very weak and woozy. Eventually she was able to return to bed and slept for a couple of hours. When she woke up this morning she had significant pain in her right hand felt that she may have a fracture. She subsequently presented to the emergency room for evaluation. She cannot recall any symptoms leading up to this event. She had been feeling well earlier in the day. She did not report any lightheadedness, dizziness or palpitations. In the remote past she has had some difficulty with orthostatic symptoms. However this is not been true recently. She cannot recall another episode of syncope at any time. The patient did suffer an acute visual disturbance few months ago. She was noted to have occipital strokes. She did undergo outpatient monitoring at that time for arrhythmia. Nothing significant was discovered. She reports being a sedentary individual. She walks outside of her development on occasion. She did not report any specific limitations other than anticipated dyspnea due to deconditioning. She has not report any exertional chest discomfort. She has not experience palpitations. Allergies Allergy/AdvReac Type Severity Reaction Status Date / Time codeine Allergy Hives Verified 08/14/21 10:36 Dextromethorphan-guaiFENesin Allergy Mild Hives Uncoded 08/14/21 10:36 S Home Medications Medication Instructions Recorded Confirmed Type telmisartan 20 mg tablet 20 mg PO DAILY #90 tab 09/13/20 08/14/21 Rx cholecalciferol (vitamin D3) 50 5,000 unit PO DAILY cap 12/24/20 08/14/21 History mcg (2,000 unit) capsule montelukast 10 mg tablet 10 mg PO QPM #90 tab 12/24/20 08/14/21 Rx fenofibrate nanocrystallized 145 145 mg PO DAILY #90 tab 02/10/21 08/14/21 Rx mg tablet simvastatin 40 mg tablet 40 mg PO HS #90 tab 02/10/21 08/14/21 Rx cetirizine 10 mg tablet (Zyrtec) 10 mg PO HS tab 03/24/21 08/14/21 History clopidogrel 75 mg tablet (Plavix) 75 mg PO DAILY #30 tab 03/27/21 08/14/21 Rx mirabegron 25 mg tablet,extended 25 mg PO PM 08/14/21 08/14/21 History release 24 hr (Myrbetriq) Patient History Medical History (Updated 08/14/21 @ 17:28 by Dae Tafoya MD) Asthma with acute exacerbation Multiple pulmonary nodules Osteoporosis Sensorineural hearing loss Surgical History H/O Mohs micrographic surgery for skin cancer Hx of cataract surgery Hx of colonoscopy Hx of hysterectomy Hx of sinus surgery Family History Father Coronary heart disease Myocardial infarction Mother Diabetes Cardiac disorder Myocardial infarction Daughter Breast cancer Family/Other Hyperlipidemia Hypertension Denies family history of Ovarian cancer Prostate cancer Colorectal cancer Social History Smoking Status: Never smoker Age Started Using Tobacco: 14; Age Quit Using Tobacco: 43; packs per day: 0.5; Years Smoked: 29; Cigarettes Per Day: 10; Second Hand Exposure: No; Hx Alcohol Use: Yes (2 glasss of wine a day) Alcohol type: wine Alcohol Intake Frequency: 4 or More x per/Week Hx Substance Use: No Preferred Language: Montenegrin Communication Ability: Effective Visual Impairment: Limited Hearing Ability: Normal Broodmare Foreman Required: No marital status: Current Living Situation: Spouse current occupational status: retired How many Children do You have: 2 Feels Safe at Home: Yes Childhood Exposure to Second-Hand Smoke: No caffeine: Yes Dental Care, Regularly: Yes Physical Activity Frequency: 3-4 Times per Week Seatbelt Use: always Sunscreen Use: Yes Review of Systems Review of Systems: Per HPI Physical Exam Physical Exam: She is alert and oriented x3. Mood affect appear normal. She answered all questions appropriately. HEENT: Sclerae are anicteric. Pupils are equal and reactive to light and acc ommodation. Extraocular movements were intact. Neuro: Cranial nerves intact Neck: No bruits on examination. Lungs: Lungs are clear to auscultation bilaterally. There are no rales wheezes or rhonchi. She has normal respiratory effort without use of accessory muscles. There is normal pulmonary excursion. Cardiac: The rhythm was regular. S1 and S2 were normal. Mid peaking crescendo systolic murmur. The PMI was not markedly displaced on palpation. Extremities: Patient has bilateral radial pulses that are equal in intensity. There is no evidence cyanosis or clubbing. There was no evidence of significant peripheral edema bilaterally. Skin: There are no rashes noted on examination today. There is ecchymosis and swelling involving the dorsal aspect of the right hand. There was ecchymosis involving the nose. Results & Data ([facility]) Vital Signs (Past 12 Hours) Vital Signs Temp Pulse Pulse Resp BP BP Pulse Ox 08/14/21 14:45 60 16 177/80 H 96 08/14/21 12:05 78 16 164/78 H 94 08/14/21 11:01 77 17 206/86 H 96 08/14/21 09:50 68 17 159/62 H 97 08/14/21 08:29 36.4 C L 92 H 20 158/80 H 97 Laboratory Results Abnormal Lab Results 08/14/21 08/14/21 08/14/21 09:05 09:05 10:25 WBC 6.43 RBC 4.39 Hgb 13.1 Hct 39.4 MCV 89.7 MCH 29.8 MCHC 33.2 RDW Std Deviation 40.5 RDW Coeff of Jai 12.5 Plt Count 209 MPV 10.9 H Immature Gran % (Auto) 0.3 Neut % (Auto) 67.6 Lymph % (Auto) 18.5 Sharkey % (Auto) 8.6 Eos % (Auto) 4.7 Baso % (Auto) 0.3 Neut # (Auto) 4.35 Lymph # (Auto) 1.19 L Sharkey # (Auto) 0.55 Eos # (Auto) 0.30 Baso # (Auto) 0.02 Immature Gran # (Auto) 0.02 Sodium 134 L Potassium 4.1 Chloride 103 Carbon Dioxide 28 Anion Gap 3.0 BUN 22 H Creatinine 1.09 Est Cr Clr Drug Dosing 34.9 Est GFR ( Amer) 52.5 Est GFR (Non-Af Amer) 45.3 BUN/Creatinine Ratio 19.9 Glucose 139 H Calcium 9.3 Total Bilirubin 0.4 AST 21 ALT 26 Alkaline Phosphatase 48 Troponin I 0.051 H* Total Protein 7.7 Albumin 3.8 Globulin 3.9 Albumin/Globulin Ratio 1.0 TSH 1.160 Urine Color Urine Appearance Urine pH Ur Specific [place] Urine Protein Urine Glucose (UA) Urine Ketones Urine Blood Urine Nitrite Urine Bilirubin Urine Urobilinogen Ur Leukocyte Esterase Urine WBC (Auto) Urine RBC (Auto) U Hyaline Cast (Auto) U Epithel Cells (Auto) Urine Bacteria (Auto) SARS-CoV-2, RNA, NAAT NEGATIVE 08/14/21 08/14/21 11:10 15:19 WBC RBC Hgb Hct MCV MCH MCHC RDW Std Deviation RDW Coeff of Jai Plt Count MPV Immature Gran % (Auto) Neut % (Auto) Lymph % (Auto) Sharkey % (Auto) Eos % (Auto) Baso % (Auto) Neut # (Auto) Lymph # (Auto) Sharkey # (Auto) Eos # (Auto) Baso # (Auto) Immature Gran # (Auto) Sodium Potassium Chloride Carbon Dioxide Anion Gap BUN Creatinine Est Cr Clr Drug Dosing Est GFR ( Amer) Est GFR (Non-Af Amer) BUN/Creatinine Ratio Glucose Calcium Total Bilirubin AST ALT Alkaline Phosphatase Troponin I 0.076 H* Total Protein Albumin Globulin Albumin/Globulin Ratio TSH Urine Color Yellow Urine Appearance Clear Urine pH 7.5 Ur Specific [place] 1.008 Urine Protein Negative Urine Glucose (UA) Negative Urine Ketones Negative Urine Blood Negative Urine Nitrite Negative Urine Bilirubin Negative Urine Urobilinogen Negative Ur Leukocyte Esterase Trace H Urine WBC (Auto) 10-30 H Urine RBC (Auto) 0-4 U Hyaline Cast (Auto) 0 U Epithel Cells (Auto) 0-5 Urine Bacteria (Auto) 1+ H SARS-CoV-2, RNA, NAAT Diagnostic Findings Imaging of the time admission revealed a very small, nondisplaced nasal fracture. Echocardiogram obtained 04/10/2021: Normal LV systolic function with ejection fraction 65-70%. Mild LVH. Moderate aortic stenosis. Event monitor from April 2021: 1st degree AV block and occasional Wenckebach conduction. ECG Additional Comments: EKG the time admission revealed normal sinus rhythm with 1st degree AV block. Narrow complex QRS PG Care Time/CCT Total # of Minutes Spent Total Time Spent with Patient: Total time spent is greater than 50% in coordination of care (as documented) at patient's floor/unit and/or counseling patient: Coding Level of Care Code 67396 Initial Inpt Care Lvl 3 Diagnoses Syncope R55 Syncope type: unspecified Aortic stenosis I35.0 Cardiac valve disease etiology: etiology unspecified Mobitz type 1 second degree AV block I44.1 (1) Syncope Syncope type: unspecified Qualified Code(s): R55 - Syncope and collapse (2) Aortic stenosis Cardiac valve disease etiology: etiology unspecified Qualified Code(s): I35.0 - Nonrheumatic aortic (valve) stenosis
--- NOTE | 2021-08-14 17:36 | XCELERA ---
[id number]
--- NOTE | 2021-08-14 17:38 | Discharge Summary ---
Date of Service August 14, 2021 Admission HPI Per Admitting Provider Jacquleine is an 86-year-old female with a past medical history of hypertension, CVA, hyperlipidemia, asthma, history of orthostatic syncope with no episodes in many years, and aortic stenosis who presents following an episode of syncope. Jacqueline reports she got up a 1am [facility]. NExt thing she remembers her was standing over here and she was wondering why she was on the floor and noticed she was bleeding profusely from the nose. Doesn't remember going to the bathroom. Does not remember being lightheaded, dizzy, or falling. heard a crash and came in within a few seconds and thought Jacqueline was in he normal state of communication almost immediately. Blachly weak after, murtaza tto stand up but was weak enouh to sit back down and took ~5 minutes to recover. Denies any recent history of syncope/lightheadedness. Endorses low blood pressure with standing and passing out in her 30s, but no issues since that time. Denies heart problems other than a murmur which has been present for ~1 year. No chest pain, no chest pressure, no shortness of breath. Has had intermittent palpitations followed by her PCP which last a few seconds at most ~1ce a day in the past, but has had no palpitations in the last year. Stopped premarin due to 3 ministrokes in Mar 2021 and has had some hot flashes since No lasting neuro deficites from the strokes Eating and drinkin gnormally. Denies nausea/vomiting/diarrhea/constipation Large bruise on the back of the R hand. Painful to her, but is able to flex and extend her fingers. History of VT in both her parents. Medical History: Reviewed Medications: Reviewed. Takes at night, last took last night. Surgical History: Reviewed. Allergies: Reviewed. Social History: No tobacco product use. Has 2 glasses of wine per night. No recreational drug use. Code Status: Surrogate decision maker would be daughter or . DNR/DNI. Admission Exam Per Admitting Provider General: A&Ox3. NAD. Cooperative. HEENT: Dried blood in nares bilaterally, able to breathe comfortably through both nares.Left forehead and midline contusion, bruising overlying the nose. No septal deviation. No septal hematoma. No septal perforation. No mastoid tenderness. Pulm: CTAB A&P. -wheezes, -rales, -rhonchi. Symmetrical chest rise. No increase work of breathing. No respiratory distress. Cardiac: RRR, systolic murmur present. Radial pulses intact and symmetrical. Abdominal: Nontender, nondistended, soft. BS present. Extremities: Right hand with hematoma overlying the dorsal aspect. Feed Mill Tender strength intact bilaterally, wrist flexion/extension intact bilaterally, elbow flexion/extension intact bilaterally. Sensation is soft touch intact in all 5 fingertips, cap refill brisk, radial pulse intact and symmetrical. Ankle dorsiflexion/plantar flexion intact without asymmetry. Neuro: Pupils equal and reactive to light and accommodation. Visual acuity and hearing grossly intact. No facial asymmetry. Tongue protrudes midline. Speech normal. Lateral head turn intact, shoulder shrug intact. No focal deficits appreciated on exam. Principal Diagnosis Syncope Discharge Exam General: A&Ox3. NAD. Cooperative. HEENT: Dried blood in nares bilaterally, able to breathe comfortably through both nares.Left forehead and midline contusion, bruising overlying the nose. No septal deviation. No septal hematoma. No septal perforation. No mastoid te nderness. Pulm: CTAB A&P. -wheezes, -rales, -rhonchi. Symmetrical chest rise. No increase work of breathing. No respiratory distress. Cardiac: RRR, systolic murmur present. Radial pulses intact and symmetrical. Abdominal: Nontender, nondistended, soft. BS present. Extremities: Right hand with hematoma overlying the dorsal aspect. Feed Mill Tender strength intact bilaterally, wrist flexion/extension intact bilaterally, elbow flexion/extension intact bilaterally. Sensation is soft touch intact in all 5 fingertips, cap refill brisk, radial pulse intact and symmetrical. Ankle dorsiflexion/plantar flexion intact without asymmetry. Neuro: Pupils equal and reactive to light and accommodation. Visual acuity and hearing grossly intact. No facial asymmetry. Tongue protrudes midline. Speech normal. Lateral head turn intact, shoulder shrug intact. No focal deficits appreciated on exam Discharge Data Allergies Allergy/AdvReac Type Severity Reaction Status Date / Time codeine Allergy Hives Verified 08/14/21 10:36 Dextromethorphan-guaiFENesin Allergy Mild Hives Uncoded 08/14/21 10:36 S Consultations 08/14/21 10:22 ED Decision to Admit Stat 08/14/21 14:00 Consult Cardiology Routine Ordered Studies 08/14/21 08:51 CT cervical spine wo con Stat CT facial bones wo con Stat 08/14/21 08:54 CT head/brain wo con Stat Hospital Course (1) Syncope: Jacqueline is an 86-year-old female with a past medical history of hypertension, CVA, hyperlipidemia, asthma, history of orthostatic syncope with no episodes in many years, and aortic stenosis who presents following an episode of syncope. Patient was initially admitted for syncope and elevated troponin as noted below. Following cardiology consultation and evaluation, was recommended that patient was stable for discharge home from a cardiac standpoint. She did not have ongoing bleeding, and her hemoglobin was stable. Her troponin did rise slightly from 0.05-0.07, this was discussed with cardiology who felt that it was still demand ischemia and could be disregarded without additional trending and patient may have follow-up with cardiology for consideration of outpatient stress testing and will have follow-up within 1 week for an implantable loop recorder. This was discussed with patient who was in agreement with the plan, and strongly preferred discharge to additional observation overnight. To do as outpatient: 1. Routine follow-up with PCP 2. Follow-up with cardiology within 1 week for implantable loop recorder 3. Outpatient evaluation of coronary ischemia/potential stress test Syncope, suspected vasovagal DDx includes arrhythmogenic 1x syncope, occurred while in the bathroom at around 1 AM Patient has a past history in her 30s of orthostatic hypotension/syncope with no problems with lightheadedness/dizziness/syncope since that time. She has had palpitations in the previous months, had moved telemetry showed mostly normal sinus rhythm with one episode of bradycardia and one episode of transient Mobitz 1 type II heart block. History of moderate aortic stenosis, does not sound symptomatic at baseline and patient ambulates well at baseline. Repeat TTE pending. Patient denies chest pain, chest pressure. Denies cardiac history other than palpitations as noted - Hx TIAs with no residual deficits in the past year and was stopped taking Premarin due to this. EKG: Normal sinus rhythm without ST segment elevation/depression. ?T wave inversion in leads I, aVL. Troponin 0.051, trended Patient with some intermittently brief pain with urination but no urgency or burning. UA with UC pending TSH normal Potassium normal, creatinine normal, sodium 134 No leukocytosis Hemoglobin 13.1 Given trop leak, outpatient mobile telemetry for arrhythmia eval, and acute presentation will consult cardiology for additional recommendations. After cardiology seen patient felt to be stable for discharge as above. (2) Nasal fracture: 2/2 syncope & fall CThead:1. No acute intracranial findings. Small left forehead contusion. No calvarial fracture. Possible acute nondisplaced left nasal bone fracture. - XR RIGHT HAND: No acute osseous pathology. Osteopenia and osteoarthritis along with dorsal soft tissue swelling. - CT-Face: Minimally displaced fracture involving the lateral wall of the nasal bones on the left. Mild bilateral ethmoid and right sphenoid sinusitis. - CT-CSpine: Osteopenia with no acute abnormality. Degenerative disc and degenerative joint disease are again seen. Non to minimally displaced nasal fracture without reduction indicated, patient able to breathe comfortably through both naris. Some dried blood in nares, no ongoing epistaxis. No septal hematoma or perforation appreciated. (3) Palpitations: See above (4) Impaired fasting glucose: BSG normal on admission Follow glucose daily, add SSI if consistently out of [id number] goal range (5) Hyperlipidemia: Statin (6) HTN (hypertension): Continue telmisartan 20 mg daily (7) CVA (cerebral vascular accident): Patient reports history of transient ischemic attacks in March Patient was started on statin and is on Plavix, had Premarin estrogen therapy stopped due to these Patient denies any residual neurologic deficits, denies deficits at time of bedside assessment (8) Asthma: Continue montelukast 10 mg p.o. every afternoon No wheezing on exam (9) Aortic stenosis: See above DVT prophylaxis: SCDs due to nasal trauma/epistaxis, may consider pharmacal prophylaxis if progressing well Disposition: Medical/surgical with telemetry CODE STATUS: DNR/DNI, discussed with patient and Diet: Heart healthy Total Time Total Time Spent Total Time Spent (In Minutes): Time spent day of discharge approximately 90 minutes including admission same day, documentation, review of labs and images, consultation with providers, and direct patient care. Discharge Plan Discharge Items Patient Disposition: Home - Self-Care Reason For Visit: SYNCOPE Discharge Diagnosis: Syncope Condition on Discharge: Good Activity: Per Instructions section Non-emergency contact: Primary Care Provider and Technology Support Analyst Call non-emergency contact if: you have any medication questions, your symptoms worsen and your pain is not controlled Follow-up/Referrals: Neo Cruz MD [Primary Care Provider] - Dae Tafoya MD [Physician] - Diet: Regular Addtl Attending Provider Instructions: You are seen in the hospital for an episode of syncope. You sustained a non to minimally displaced nasal fracture. Your case was reviewed with cardiology. You are initially admitted to the hospital for observation and monitoring of cardiac enzymes, follow in consultation with cardiology it was recommended that you are able to return home with outpatient follow-up for an implantable loop recorder. You were comfortable with this plan, and did not wish to remain for additional observation. If you experience worsening or recurrent symptoms including lightheadedness, dizziness, chest pain, chest pressure, or other new concerning symptoms please contact your primary care provider or 911 for transfer to an evaluation in the emergency department if you are very concerned. Of note your troponin, a marker of heart stress/damage, was slightly elevated during admission. On recheck this was similar to very slightly increased. This was discussed with cardiology, who felt that it was from a demand ischemia and not marketing sales representative of a heart attack and felt that you were still safe for discharge home. Follow-up appointment is being scheduled for you with your primary care provider and cardiology as noted above. If you do not receive a call to confirm these appointments, please call their office directly at the numbers above. You should be seen by cardiology within approximately 1 week and by your primary care provider within approximately 1 week. You have not been started on any new medications at discharge. Your nasal bone fracture was minimally displaced and did not require reduction/resetting during admission. He did not show signs of a septal hematoma or perforation. Your bleeding stopped spontaneously. Please do not aggressively blow your nose, as this can reopen bleeding. Your x-rays during admission did not show any signs of fracture. If you develop any new or worsening symptoms including fever, chills, sweats, chest pain, chest pressure, difficulty breathing, uncontrolled nausea/vomiting, rash, wheezing, passing out or nearly passing out, bleeding, black/bloody bowel movements, or other new or concerning symptoms please call your primary care physician, or call 911 for re-evaluation in the emergency department if you are very concerned. Pending Studies at Discharge: No Stand-Alone Forms: My [employer], Smoking Cessation Medications and DC Order Prescriptions: Continued telmisartan 20 mg tablet 20 mg PO DAILY Qty: 90 RF: 3 montelukast 10 mg tablet 10 mg PO QPM Qty: 90 RF: 3 fenofibrate nanocrystallized 145 mg tablet 145 mg PO DAILY Qty: 90 RF: 3 simvastatin 40 mg tablet 40 mg PO HS Qty: 90 RF: 3 clopidogrel [Plavix] 75 mg tablet 75 mg PO DAILY Qty: 30 RF: 0 cholecalciferol (vitamin D3) 50 mcg (2,000 unit) capsule 5,000 unit PO DAILY RF: 0 cetirizine [Zyrtec] 10 mg tablet 10 mg PO HS RF: 0 Myrbetriq 25 mg tablet extended release 24 hr 25 mg PO PM RF: 0 Discharge Orders: Discharge Order (Routine); Ordered 08/14/21 Ordered By: Neo Hebert Admission Data Admit Date/Time: 08/14/21 11:21 Attending Provider: Neo Hebert Admit Provider: Neo Hebert Primary Care Provider: Neo Cruz Other Providers: Tiburcio Skinner ; Neo Hebert Coding Level of Care Code None Diagnoses Syncope R55 Syncope type: unspecified Nasal fracture S02.2XXA Encounter type: initial encounter Fracture type: closed Palpitations R00.2 Impaired fasting glucose R73.01 Hyperlipidemia E78.00; E78.0 Hyperlipidemia type: pure hypercholesterolemia HTN (hypertension) I10 Hypertension type: essential hypertension CVA (cerebral vascular accident) I63.9 Asthma J45.909 Aortic stenosis I35.0 Cardiac valve disease etiology: etiology unspecified
--- NOTE | 2021-08-14 17:40 | Billing Data ---
Date of Service August 14, 2021 Coding Level of Care Code OBSERV/HOSP SAME DATE LVL 2
--- NOTE | 2021-08-14 18:21 | Electrocardiogram Report ---
Test Reason : Blood Pressure : / mmHG Vent. Rate : 081 BPM Atrial Rate : 081 BPM P-R Int : 200 ms QRS Dur : 082 ms QT Int : 354 ms P-R-T Axes : 055 016 099 degrees QTc Int : 411 ms Normal sinus rhythm with 1st degree AV block T wave abnormality, consider lateral ischemia Abnormal ECG When compared with ECG of 18-JAN-2017 11:38, No significant change was found Confirmed by Víctor Tafoya ([id number]) on 08/14/2021 6:21:09 PM Referred By: Confirmed By:Sebastian Tafoya
[2021-08-14] MEDS ORDERED: SIMVASTATIN 40 MG TAB PO SCH (21:00)
[2021-08-14] MEDS ORDERED: MIRABEGRON ER 25 MG TAB PO SCH (21:00)
[2021-08-14] MEDS ORDERED: MONTELUKAST SODIUM 10 MG TABLET PO SCH (21:00)
[2021-08-14] MEDS ORDERED: CLOPIDOGREL BISULFATE 75 MG TAB PO SCH (21:00)
[2021-08-15] MEDS ORDERED: FENOFIBRATE NANOCRYSTALLIZED 145 MG TABLET PO SCH (09:00)
[2021-08-15] MEDS ORDERED: TELMISARTAN 20 MG TAB PO SCH (09:00)
== END 2021-08-14 18:31 | disposition home or self-care (01) ==
LOC: ED 08:25 → EDINP 08:25